=== PATIENT | male | born 1955 | race Caucasian/White ===

== ENCOUNTER 2018-09-27 18:57 | Outpatient (CLI) | payer BC | END 2018-09-27 18:58 | disposition EMS.NT | LOC: EMS 18:57 | PROVIDERS: ATTEND Surgery | DX: R07.9 Chest pain, unspecified (principal) ==

== ENCOUNTER 2019-01-13 14:11 | Outpatient (CLI) | payer BC ==
[2019-01-13 21:03] VITALS: BP 135/77
--- NOTE | 2019-01-13 21:03 | SLEEP CARE CONSULTATION ---
Information from patient questionnaire entered by Katerine Ritchie. I have reviewed and concur with the information entered by Katerine Ritchie. This document represents the service I personally performed and the decisions made by me, Natali Singh MD, [facility]. History of Present Illness Reason for Visit: New patient, Previously diagnosed sleep apnea, sleep apnea on CPAP therapy Chief Complaint: reports: Other (broken machine) Usual bedtime: 2300 Time it takes to fall asleep: 15-20 minutes Snores at night: No (not when using CPAP) Number of times waking at night: 2 Reasons for waking at night: reports: Bathroom Toss, Turn, or Twitch while sleeping: No Recalls having dreams: Yes Usually gets out of bed at: 0700 Feels refreshed in the morning: Yes Morning headache: No Sleepy or fatigued during the day: No Ever fallen asleep while driving: No Takes day naps: No Prior sleep studies: Yes Year and Where: 2011 [facility] Additional HPI information: I had the pleasure of seeing Mr. Melgar today regarding obstructive sleep apnea-hypopnea. As you know, he is a 63 year old gentleman who was diagnosed with the sleep-disordered breathing at [facility] in [place] (the location has closed long time ago). He was prescribed a CPAP device set at 11 cmH2O per his recollection. The ResMed S9 is now 8 years old and the heated humidifier is broken. He uses every night and all night. 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 He wears ResMed AirFit P-10 nasal pillows and a chinstrap. He gets his supplies from [facility]. He finds the treatment very helpful. 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 Patient is and lives in [place]. Have you smoked in the past 12 months: No Alcohol use: No Caffeine use: Yes Caffeine amount and frequency: 1 cup tea/ occasional morning Family History Family history of sleep disordered breathing: Yes Family Hx Sleep Apnea: Sibling: Snoring Allergies and Home Medications Drug allergies reviewed: Yes Home medication list reviewed: Yes Allergy and home medication list: Meds: zolpidem, hydrocodone, clonazepam, amcinomide, gabapentin, hydrochlorothiazide, lisinopril, metformin, sildenafil Allergies: NKDA Review of Systems Cardiovascular: reports: high blood pressure Respiratory: denies: shortness of breath, wheeze, sputum production, chronic cough, other Gastrointestinal: denies: heartburn, difficulty swallowing, nausea, vomitting, diarrhea, abdominal pain, other Urinary: reports: other (nocturia) Neurological: denies: headaches, seizure, head trauma, disorientation, speech dysfunction, gait or balance problems, fainting or unconsciousness, other Psychiatric: denies: Attention Deficit Hyperactivity, anxiety, depression, mood disorder, claustrophobia, other Ear/Nose/Throat: denies: nasal congestion, sinus problems, nose bleeds, dry mouth/throat, hoarseness, injury to nose, tonsillectomy, wisdom teeth removed, other Endocrine: denies: thyroid disease, history of goiter, sluggishness, too hot or cold, excessive thirst, increased appetite, increased urination, unexplained weakness, other Musculoskeletal: denies: joint pain, neck pain, back pain, joint swelling, muscle pain or cramping, mobility problems, other Immunologic: denies: sneezing, rash, itching, allergies to food or environment, other Physical Exam Vital signs obtained and entered by: Dr. Singh Blood Pressure: 135/77 Cuff size: regular Heart Rate: 60 O2 Saturation: 99 Height: 5 ft 11 in Weight: 167 lb Body Mass Index: 23.3 BMI Classification: Healthy weight Neck circumference: 15 Mood/affect: normal HEENT: No craniofacial malformation Nostrils: patent to airflow Turbinates: normal Septum: midline Mouth and throat: narrow oropharynx Soft palate: long Hard palate: normal Uvula: normal Uvula visualization: 50% Mallampati Class II Tongue: normal in size Tonsils: small Chin and jaw: normal size and position Neck: normal w/o lymphadenopathy or thyromegaly Heart: regular rate and rhythm Lungs: clear bilaterally Abdomen: soft, non-tender Extremities: no edema or clubbing Neurologic: intact, no focal deficits Impression and Plan IMPRESSION: 1. Obstructive Sleep Apnea-Hypopnea Syndrome, very severe, as previously diagnosed. The patient has had good treatment compliance. The current pressure setting appears effective and comfortable. The patient experiences improvement on the treatment. Narrow oropharynx and obesity are common predisposing factors for obstructive sleep apnea-hypopnea syndrome. Because the CPAP is now older than the useful life of 5 years, I will order the patient a new one and make it an autoCPAP set between 7 and 12 cmH2O. Plan: 1. Prescription made for an autoCPAP, heated humidifier, and related supplies. 2. Avoid long distance driving or when feeling sleepy. 3. Avoid alcohol, sedative and muscle relaxant around bedtime. 4. Attempt to lose weight. 5. Return for a follow up after one month on the new machine. I spent 100% of this 20 minute visit face to face with the patient with greater than 50% of this was spent time counseling the patient and coordination of care.
== END 2019-01-13 14:12 | disposition home or self-care (01) ==
LOC: SC 14:11
PROVIDERS: ATTEND Internal Medicine Pulmonary Disease
DX: G47.33 Obstructive sleep apnea (adult) (pediatric) (principal)
CPT/HCPCS: 99203; 99212

== ENCOUNTER 2019-07-07 13:50 | Outpatient (CLI) | payer MEDICARE, OTHER ==
--- NOTE | 2019-07-07 13:43 | SLEEP CARE CONSULTATION ---
Information from patient questionnaire entered by Lakeisha Michelle. I have reviewed and concur with the information entered by Lakeisha Michelle. This document represents the service I personally performed and the decisions made by me, Natali Singh MD, [facility]. History of Present Illness Service Date and Time: 07/07/2019 1420 Previous diagnosis: Very Severe AHI: 71.9 (in 1999) Reason for follow up: first compliance after device update Equipment type: CPAP Equipment obtained from: [employer] Prior sleep studies: Yes Year and Where: 1999 - [place], [place] Type of Sleep Study: Home sleep study HPI additional information: HPI: Mr. Melgar was called today to follow up on the nasal CPAP therapy. He was diagnosed to have obstructive sleep apnea-hypopnea syndrome and recently acquired a new autoCPAP. The patient wears ResMed P-10 nasal pillows. He reports using the device nightly and all through the night. The compliance report shows usage in 30 nights out of the past 30 nights, averaging 7.5 hours a night. The > 4 hour compliance rate for the past 30 days is 100%. He complained of no particular problem with the device such as soreness on the face, dry nose, epistaxis, nasal congestion or headache. He thinks that the pressure of 8 12 cmH2O is comfortable. On the CPAP therapy he notices improvement in his sleep quality, and that he wakes up feeling fresher in the morning and more awake/alert during the day. His notices no snore at all. The average residual AHI is 1.5; and average time in large leak per day is 0. The 90th percentile pressure is 10 cmH2O. CPAP Compliance Data - Data Reviewed with Patient Average duration of nightly device use: 7.5 Compliance rate %: 93.3 Current pressure setting (cmH2O): 8-11 Humidity settin Heated hose settin Average residual AHI: 1.5 Average large leak: 0 Subjective Initial [place] Sleepiness Scale score: 0 (in 2019) Allergies and Home Medications Drug allergies reviewed: Yes Home medication list reviewed: Yes Physical Exam Height: 5 ft 11 in Impression and Plan IMPRESSION: 1. Obstructive Sleep Apnea-Hypopnea Syndrome (severity is unknown because he was diagnosed at a facility in [place] that closed long time ago), with the patient doing very well on nasal CPAP therapy. He has excellent compliance and significant clinical improvement. The current pressure appears effective and comfortable. His mask fits well. Overall, he is very satisfied with treatment and plans to continue with it long-term. No adjustment is necessary today. PLAN: 1. Continue with autoCPAP set at 8 - 12 cmH2O. 2. Try other ResMed P30i nasal pillows. 3. Return in one year for follow up or earlier if there is any problem with the treatment. Visit Type: Telehealth Phone Patient Location: Home Location of Provider: Home Patient agrees and consents to this telehealth visit type: Yes Patient agrees to have their insurance billed: Yes Time Spent with Patient (minutes): 8 Provider Statement: I spent 100% of the Telehealth Phone Call with the patient with greater than 50% spent counseling the patient and coordination of care.
== END 2019-07-07 13:51 | disposition home or self-care (01) ==
LOC: SC 13:50
PROVIDERS: ATTEND Internal Medicine Pulmonary Disease
DX: G47.33 Obstructive sleep apnea (adult) (pediatric) (principal)

== ENCOUNTER 2020-07-18 14:41 | Outpatient (CLI) | payer MEDICARE, OTHER ==
--- NOTE | 2020-07-18 15:35 | SLEEP CARE CONSULTATION ---
Information from patient questionnaire entered by Lakeisha Michelle. I have reviewed and concur with the information entered by Lakeisha Michelle. This document represents the service I personally performed and the decisions made by me, Natali Singh MD, [facility]. History of Present Illness Service Date and Time: 07/18/2020 1441 Previous diagnosis: Very Severe AHI: 71.9 (in 1999) Reason for follow up: annual (last seen 06/2019) Equipment type: CPAP Equipment obtained from: [employer] Mask style: Nasal pillows Mask brand: Resmed (P-10) Prior sleep studies: Yes Year and Where: 1999 - [place], [place] HPI additional information: HPI: Mr. Melgar returns today to follow up on the nasal CPAP therapy. He was diagnosed to have obstructive sleep apnea-hypopnea syndrome and recently acquired a new autoCPAP. The patient wears ResMed P-10 nasal pillows. He reports using the device nightly and all through the night. The compliance report shows usage in 179 nights out of the past 180 nights, averaging 6.9 hours a night. The > 4 hour compliance rate for the past 180 days is 93.9%. He complained of no particular problem with the device such as soreness on the face, dry nose, epistaxis, nasal congestion or headache. He thinks that the pressure of 8 12 cmH2O is comfortable. On the CPAP therapy he notices improvement in his sleep quality, and that he wakes up feeling fresher in the mo rning and more awake/alert during the day. His notices no snore at all. The average residual AHI is 1.9; and average time in large leak per day is 20 seconds. The 90th percentile pressure is 10.2 cmH2O. CPAP Compliance Data - Data Reviewed with Patient Average duration of nightly device use: 6 hr 57 min Compliance rate %: 93.9 (180 days) Current pressure setting (cmH2O): 8-12 Humidity settin Heated hose settin Average residual AHI: 1.9 Average large leak: 20 sec Subjective Initial [place] Sleepiness Scale score: 0 (in 2019) Current [place] Sleepiness Scale score: 7 Allergies and Home Medications Drug allergies reviewed: Yes Home medication list reviewed: Yes Review of Systems Review of systems same as previous: Yes Physical Exam Height: 5 ft 11 in Weight: 172 lb Body Mass Index: 24.0 BMI Classification: Healthy weight Impression and Plan IMPRESSION: 1. Obstructive Sleep Apnea-Hypopnea Syndrome (severity is unknown because he was diagnosed at a facility in [place] that closed long time ago), with the patient doing very well on nasal CPAP therapy. He has excellent compliance and significant clinical improvement. The current pressure appears effective and comfortable. His nasal pillows fit well. Overall, he is very satisfied with treatment and plans to continue with it long-term. No adjustment is necessary today. PLAN: 1. Continue with autoCPAP set at 8 - 12 cmH2O. 3. Try ResMed N30i mask and P30i nasal pillows. 4. Return in one year for follow up or earlier if there is any problem with the treatment. Visit Type: In Office Time Spent with Patient (minutes): 15 Provider Statement: I spent 100% of the Face to Face Visit with the patient with greater than 50% spent counseling the patient and coordination of care.
== END 2020-07-18 14:42 | disposition home or self-care (01) ==
LOC: SC 14:41
PROVIDERS: ATTEND Internal Medicine Pulmonary Disease
DX: G47.33 Obstructive sleep apnea (adult) (pediatric) (principal)
CPT/HCPCS: 99212; G0463

== ENCOUNTER 2023-06-11 08:08 | Outpatient (CLI) | payer MEDICARE, OTHER ==
[2023-06-11 15:39] LABS: ALBUMIN 4.7 g/dL (3.2-5.5); ALBUMIN/GLOBULIN RATIO 1.7 (1.0-2.2); ALKALINE PHOSPHATASE 51 IU/L (42-121); ALT ALANINE AMINOTRANSFERASE 11 IU/L (10-60); AST ASPARTATE AMINOTRANSFERASE 16 IU/L (10-42); BILIRUBIN,TOTAL 0.4 mg/dL (0.2-1.0); BUN - BLOOD UREA NITROGEN 22 mg/dL (6-20); CALCIUM 10.2 mg/dL (8.5-10.3); CARBON DIOXIDE - CO2 27 mmol/L (21-32); CHLORIDE 105 mmol/L (101-111); CHOL/HDL RATIO 3.1 (<5.0); CHOLESTEROL 192 mg/dL; GFR - MDRD 74 (>89); GLUCOSE 98 mg/dL (74-104); HDL CHOLESTEROL 61 mg/dL; LDL CHOLESTEROL,CALCULATED 92 mg/dL; LDL/HDL RATIO 1.5 (<3.6); POTASSIUM 4.1 mmol/L (3.5-4.5); SODIUM 138 mmol/L (135-145); TOTAL PROTEIN 7.4 g/dL (6.4-8.9); TRIGLYCERIDES 193 mg/dL (48-352); VLDL CHOLESTEROL 39 mg/dL
[2023-06-11 15:41] LABS: PSA TOTAL 0.48 ng/mL (0.000-2.000)
[2023-06-11 20:35] LABS: ESTIMATED AVERAGE GLUCOSE 100 mg/dL (70-100); HEMOGLOBIN A1c% 5.1 % (4.27-6.07)
== END 2023-06-11 08:09 | disposition home or self-care (01) ==
LOC: LAB.S 08:08
PROVIDERS: ATTEND Registered Nurse
DX: I10 Essential (primary) hypertension (principal); R73.01 Impaired fasting glucose; Z13.6 Encounter for screening for cardiovascular disorders; Z12.5 Encounter for screening for malignant neoplasm of prostate
CPT/HCPCS: 36415; 80053; 80061; 83036; 83721; 84153